=== PATIENT | female | born 2000 | race Caucasian/White ===

== ENCOUNTER 2021-05-27 11:24 | Emergency (ER) | payer SELFPAY ==
[2021-05-27 11:39] VITALS: BP 116/75; PULSE 103; RESP 16; TEMP 37.1; O2SAT 99
[2021-05-27 11:57] VITALS: BP 116/75; PULSE 103; RESP 16; TEMP 37.1; O2SAT 99
--- NOTE | 2021-05-27 12:13 | ED.GENADULT ---
HPI - General Adult General Chief complaint: Nausea/Vomiting/Diarrhea Stated complaint: abd pain Source: patient Mode of arrival: ambulatory Limitations: no limitations History of Present Illness HPI narrative: Patient is a 20-year-old female presents to the [facility] via POV for a IBS flare that began yesterday. Additionally, she states she believes last night's dinner precipitated an exacerbation of IBS. She states her symptoms include diarrhea, nausea, vomiting, and low abdominal pain. She states flares are caused by poor diet. 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 In the past she has taken omeprazole, Gas-X, and Gaviscon provides minimal relief. She states symptoms are improving. Related Data Allergies Allergy/AdvReac Type Severity Reaction Status Date / Time No Known Allergies Allergy Verified 05/27/21 11:56 Review of Systems Review of Systems: Pertinent negatives fever, chills, sweats, malaise, poor p.o. intake, change in appetite, recent weight loss, lymphadenopathy, headache, sore throat, dizziness, LOC, urinary sxs, back/flank pain, extremity paresthesias, blood in stool, constipation, belching, bloating, dry mouth, heartburn, jaundice, vomiting blood Exam Narrative: GENERAL: Well-appearing, well-nourished, and in no acute distress. HEAD: Normocephalic, atraumatic. No sinus tenderness or facial swelling appreciated. EYES: PERRLA and EOMI. No evidence of erythema, swelling, or drainage. ENT: Mucous membranes moist and pink. Uvula is midline without erythema and swelling. No evidence of petechial rash, cobblestoning, lesions, ulcers, erythema, swelling, exudates, peritonsillar abscess, tenting, or drooling. Breath odor and voice normal. NECK: Supple. No Lymphadenopathy or nuchal rigidity appreciated. CHEST: Bilateral lung faulkner are clear to auscultation. No respiratory distress. No evidence of cough or pleuritic cp upon examination. HEART: Regular rate and rhythm. No murmur, gallop, or rub heard. ABDOMEN: Mild lower abdominal tenderness appreciated upon palpation. Abdomen is soft, nondistended with hyperactive bowel sounds in left lower and right lower quadrants. No guarding. No rebound tenderness. No pulsatile or palpable abdominal mass(es). No CVAT. EXTREMITIES: Normal range of motion. No edema. SKIN: Warm, dry, no rash. Excellent skin turgor. NEURO: No focal deficits. Alert and oriented x3. Course Vital Signs Vital signs: Vital Signs Temperature 98.7 F 05/27/21 11:39 Pulse Rate 103 H 05/27/21 11:39 Respiratory Rate 16 05/27/21 11:39 Blood Pressure 116/75 05/27/21 11:39 Pulse Oximetry 99 05/27/21 11:39 Temperature 98.7 F 05/27/21 11:57 Pulse Rate 103 H 05/27/21 11:57 Respiratory Rate 16 05/27/21 11:57 Blood Pressure 116/75 05/27/21 11:57 Pulse Oximetry 99 05/27/21 11:57 Reviewed. Medical Decision Making Medical Records Medical records reviewed: Yes I reviewed the external patient's medical records. Vital Signs Vital Signs: Vital Signs Temperature 98.7 F 05/27/21 11:39 Pulse Rate 103 H 05/27/21 11:39 Respiratory Rate 16 05/27/21 11:39 Blood Pressure 116/75 05/27/21 11:39 Pulse Oximetry 99 05/27/21 11:39 Temperature 98.7 F 05/27/21 11:57 Pulse Rate 103 H 05/27/21 11:57 Respiratory Rate 16 05/27/21 11:57 Blood Pressure 116/75 05/27/21 11:57 Pulse Oximetry 99 05/27/21 11:57 Critical Care Time Critical Care Time Critical Care Time: No Discharge Plan Discharge Clinical Impression: Diarrhea Nausea & vomiting Qualifiers: Vomiting type: unspecified Patient Disposition: Home, Self-Care Condition: Stable Instructions: Irritable Bowel Syndrome (ED) Additional Instructions: See discharge instructions for detailed information. Take all prescription medication only as prescribed. No [id number] anti-inflammatory such as Aleve, ibuprofen, Advil wh
== END 2021-05-27 12:36 | disposition home or self-care (01) ==
PROVIDERS: Emergency Provider Nurse Practitioner Family
DX: R19.7 Diarrhea, unspecified (principal); R11.2 Nausea with vomiting, unspecified
CPT/HCPCS: 99203; G0463